=== PATIENT | male | born 1985 | race Caucasian/White ===

== ENCOUNTER 2021-05-11 23:46 | Inpatient (IN) ==
[2021-05-12] MEDS ORDERED: NS 0.9% 1000 ml BAG 1,000 ML IV ONE (00:59)
[2021-05-12] MEDS ORDERED: diPHENhydraMINE IV 50 MG/ML 1 ml VIAL (BENADRYL) SLOW PUSH ONE (01:04)
[2021-05-12] MEDS ORDERED: Metoclopramide 5 MG/ML VIAL (10 mg) IV SLOW PU ONE (01:04)
[2021-05-12] MEDS ORDERED: Pantoprazole VIAL 40 MG VIAL IV ONE (01:04)
[2021-05-12 01:40] LABS: ABS Basophils 0.1 10^3/ul (0-0.2); ABS Eosinophils 0.1 10^3/ul (0-0.6); ABS Lymphocytes 1.4 10^3/ul (1.0-4.8); ABS Monocytes 1.2 10^3/ul (0-0.8); ABS Neutrophils 8.9 10^3/ul (1.5-7.7); Eosinophil % 0.9 %; Hematocrit 47 % (42-52); Hemoglobin 16.4 g/dL (14.0-18.0); Lymphocyte % 11.8 %; Mean Corpuscular HGB Conc 35 g/dL (31-36); Mean Corpuscular Hemoglobin 34 pg (27-31); Mean Corpuscular Volume 97 fL (80-94); Mean Platelet Volume 7.9 fL (7.4-10.4); Nucleated Red Blood Cells % 0.2; Platelet Count 286 10^3/uL (150-450); Red Blood Count 4.86 10^6 /uL (4.18-5.48); Red Cell Distribution Width 15 % (10-15); White Blood Count 11.7 10^3/uL (3.5-10.8)
[2021-05-12 01:57] LABS: Albumin 4.2 g/dL (3.2-5.2); Albumin/Globulin Ratio 1.4 (1-3); C Reactive Protein 2.33 mg/L (<8.01); Calcium 9.3 mg/dL (8.6-10.3); EGFR African American 66.3 (>60); EGFR Non-African American 54.8 (>60); Magnesium 1.7 mg/dL (1.9-2.7); Potassium 2.8 mmol/L (3.5-5.0); Total Bilirubin 1.4 mg/dL (0.2-1.0); Total Protein 7.2 g/dL (6.4-8.9)
[2021-05-12] MEDS ORDERED: Potassium Chlor 20 meq TAB.ER PO ONE ×2 (02:15→05:59)
[2021-05-12] MEDS ORDERED: Magnesium Sulfate IV 1GM/100ML 1 GM/100 ML BAG IV ONE (02:15)
[2021-05-12] MEDS: KCL 10 MEQ/50 ML IVPREMIX 10 MEQ/50 ML BAG IV SCH ×2 (04:12→05:21)
[2021-05-12] MEDS: NS 0.9% 1000 ml BAG 1,000 ML IV SCH ×2 (05:07→06:04)
[2021-05-12] MEDS ORDERED: chlorproMAZINE 25 MG/ML 2 ML (50 MG) IV ONE (05:24)
[2021-05-12] MEDS ORDERED: NS 0.9% 1000 ml BAG 1,000 ML IV SCH (06:00)
[2021-05-12] MEDS ORDERED: Potassium Chloride LIQUID 20 MEQ/15 ML LIQUID PO ONE ×3 (06:10→12:00)
[2021-05-12] MEDS ORDERED: Magnesium Sulfate 2 gm BAG 2 GM/50 ML BAG IVPB ONE (07:36)
[2021-05-12 07:52] LABS: Myoglobin 260.2 ng/mL (17.4-105.7)
[2021-05-12] MEDS ORDERED: Ondansetron 4 mg VIAL 2 MG/ML 2 ml VIAL IV PRN (08:07)
[2021-05-12 08:47] LABS: Calcium 7.9 mg/dL (8.6-10.3); EGFR African American 74.5 (>60); EGFR Non-African American 61.6 (>60); Potassium 3.4 mmol/L (3.5-5.0)
[2021-05-12 08:49] LABS: Urine Appearance Clear; Urine Bilirubin Negative (Negative); Urine Blood 1+ (Negative); Urine Color Yellow; Urine Glucose Negative (Negative); Urine Ketones Negative (Negative); Urine Nitrite Negative (Negative); Urine Protein Negative (Negative); Urine Specific Gravity 1.011 (1.002-1.030); Urine Urobilinogen Negative (Negative)
[2021-05-12 08:52] LABS: Urine Bacteria Absent (Absent); Urine Red Blood Cell Absent (Absent); Urine White Blood Cell Trace(0-5/hpf) (Absent)
[2021-05-12] MEDS ORDERED: Lactated Ringers 1000 ml BAG 1,000 ML IV SCH (09:00)
[2021-05-12] MEDS ORDERED: Thiamine 100 MG/ML 2 ml VIAL 500 MG in NS 0.9% 250 ml 250 ML IV SCH (10:30)
[2021-05-12] MEDS ORDERED: Benzocaine/Menthol LOZ PO PRN (11:02)
[2021-05-12] MEDS: Thiamine 100 MG/ML 2 ml VIAL 500 MG in NS 0.9% 250 ml 250 ML IV SCH ×2 (12:36→21:13)
[2021-05-12] MEDS ORDERED: Gadoteridol (CONTRAST) 279.3 MG/ML 10 ML IV ONE ×2 (15:54→15:59)
[2021-05-12] MEDS ORDERED: Calcium Carb (TUMS) 500 mg CHEW TAB PO PRN (23:12)
[2021-05-13 04:46] LABS: ABS Basophils 0.1 10^3/ul (0-0.2); ABS Eosinophils 0.2 10^3/ul (0-0.6); ABS Lymphocytes 1.6 10^3/ul (1.0-4.8); ABS Monocytes 0.6 10^3/ul (0-0.8); ABS Neutrophils 4.9 10^3/ul (1.5-7.7); Eosinophil % 2.2 %; Hematocrit 40 % (42-52); Hemoglobin 13.4 g/dL (14.0-18.0); Lymphocyte % 22.1 %; Mean Corpuscular HGB Conc 34 g/dL (31-36); Mean Corpuscular Hemoglobin 34 pg (27-31); Mean Corpuscular Volume 99 fL (80-94); Platelet Count 230 10^3/uL (150-450); Red Blood Count 4.02 10^6 /uL (4.18-5.48); Red Cell Distribution Width 14 % (10-15); White Blood Count 7.5 10^3/uL (3.5-10.8)
[2021-05-13 05:04] LABS: Albumin 3.5 g/dL (3.2-5.2); Albumin/Globulin Ratio 1.6 (1-3); Calcium 7.9 mg/dL (8.6-10.3); EGFR African American 74.5 (>60); EGFR Non-African American 61.6 (>60); Globulin 2.2 g/dL (2-4); Potassium 3.3 mmol/L (3.5-5.0); Total Bilirubin 0.8 mg/dL (0.2-1.0); Total Protein 5.7 g/dL (6.4-8.9)
[2021-05-13] MEDS: Thiamine 100 MG/ML 2 ml VIAL 500 MG in NS 0.9% 250 ml 250 ML IV SCH ×2 (05:24→12:59)
[2021-05-13] MEDS ORDERED: cefTRIAXone 1 gm/50 mL NS BAG 1 GM/50 ML BAG IVPB SCH (06:30)
[2021-05-13 09:50] LABS: Activated Partial Thrombo Time 27.9 seconds (26.0-38.0); INR 0.94 (0.86-1.15)
[2021-05-13 12:06] LABS: Body Fluid Source Cerebral Spinal
[2021-05-13 12:22] LABS: CSF Glucose 55 mg/dL (40-70)
[2021-05-13 12:49] LABS: Body Fluid Appearance Clear; Body Fluid Color Colorless; Body Fluid WBC 1 /mcL; CSF Tube # 4
[2021-05-13 12:54] LABS: Body Fluid Mono 60 %; Body Fluid Total Cells Counted 10
[2021-05-13 13:27] VITALS: BP 120/63
[2021-05-14 09:10] LABS: Anaplasma phagocytophilum Negative (Negative); B. miyamotoi PCR, B Negative (Negative); Babesia divergens/MO-1 Negative (Negative); Babesia ducani Negative (Negative); Ehrlichia chaffeensis Negative (Negative); Ehrlichia ewingii/canis Negative (Negative); Ehrlichia muris eauclairensis Negative (Negative)
[2021-05-14 16:06] LABS: CSF VDRL Negative (Negative)
[2021-05-14 16:13] LABS: HSV 1 PCR, CSF Negative (Negative); HSV 2 PCR, CSF Negative (Negative)
[2021-05-17 00:13] LABS: CSF Angiotension Conv Enz 1.5 U/L (0.0-2.5)
[2021-05-18 13:50] LABS: CSF Oligoclonal Bands 1 bands; Oligoclonal Proteins Interpret 0 bands (<2); Serum Oligoclonal Bands 1 bands
[2021-05-19 15:55] LABS: B. garinii/B. afzellii PCR Negative (Negative); Lyme Disease Source CSF
[2021-05-20 16:11] LABS: CSF West Nile Virus IgG Ab Negative (Negative); CSF West Nile Virus IgM Ab Negative (Negative)
[2021-05-22 00:05] LABS: Lyme CNS IgG Ab Index Interp Negative; Lyme CNS IgG Ab Index Value 0.8 (0.6 - 1.2)
== END 2021-05-13 14:55 | disposition home or self-care (01) | DRG 144 ==
LOC: ED 23:46 → MED 05-12 09:03
PROVIDERS: ADMIT Internal Medicine; ATTEND Internal Medicine

== ENCOUNTER 2021-05-27 13:19 | Inpatient (IN) ==
[2021-05-27 15:12] LABS: ABS Basophils 0.1 10^3/ul (0-0.2); ABS Eosinophils 0.1 10^3/ul (0-0.6); ABS Lymphocytes 1.2 10^3/ul (1.0-4.8); ABS Monocytes 0.5 10^3/ul (0-0.8); Eosinophil % 2.8 %; Hematocrit 48 % (42-52); Hemoglobin 16.5 g/dL (14.0-18.0); Lymphocyte % 23.5 %; Mean Corpuscular HGB Conc 35 g/dL (31-36); Mean Corpuscular Hemoglobin 34 pg (27-31); Mean Corpuscular Volume 97 fL (80-94); Mean Platelet Volume 7.6 fL (7.4-10.4); Nucleated Red Blood Cells % 0.1; Platelet Count 263 10^3/uL (150-450); Red Blood Count 4.92 10^6 /uL (4.18-5.48); Red Cell Distribution Width 14 % (10-15); White Blood Count 4.9 10^3/uL (3.5-10.8)
[2021-05-27 15:31] LABS: Albumin 4.4 g/dL (3.2-5.2); Albumin/Globulin Ratio 1.4 (1-3); Calcium 9.1 mg/dL (8.6-10.3); EGFR African American 64.2 (>60); EGFR Non-African American 53.1 (>60); Globulin 3.1 g/dL (2-4); Magnesium 1.8 mg/dL (1.9-2.7); Potassium 3.8 mmol/L (3.5-5.0); Total Protein 7.5 g/dL (6.4-8.9)
[2021-05-27] MEDS ORDERED: NS 0.9% 500 ml BAG 500 ML IV SCH (18:00)
[2021-05-27] MEDS ORDERED: NS 0.9% 1000 ml BAG 1,000 ML IV ONE (18:19)
[2021-05-27 20:04] LABS: Phosphorus 2.8 mg/dL (2.5-5.0)
[2021-05-27] MEDS ORDERED: Ondansetron 4 mg VIAL 2 MG/ML 2 ml VIAL IV ONE (20:35)
[2021-05-27 20:59] LABS: Urine Appearance Clear; Urine Bilirubin Negative (Negative); Urine Blood Negative (Negative); Urine Color Yellow; Urine Glucose Negative (Negative); Urine Ketones Negative (Negative); Urine Nitrite Negative (Negative); Urine Protein 1+(30 mg/dL) (Negative); Urine Specific Gravity 1.016 (1.002-1.030); Urine Urobilinogen Negative (Negative)
[2021-05-27 21:01] LABS: Urine Bacteria Absent (Absent); Urine Red Blood Cell Trace(0-2/hpf) (Absent); Urine White Blood Cell Absent (Absent)
[2021-05-27] MEDS ORDERED: Al Hydrox/Mg Hydrox/Simet LIQ 30 ML UDC PO PRN (21:36)
[2021-05-28 05:24] LABS: Hepatitis C Antibody Negative (Negative)
[2021-05-28] MEDS ORDERED: Ondansetron 4 mg VIAL 2 MG/ML 2 ml VIAL IV PRN (06:30)
[2021-05-28 07:45] LABS: ABS Basophils 0.1 10^3/ul (0-0.2); ABS Eosinophils 0.2 10^3/ul (0-0.6); ABS Lymphocytes 1.4 10^3/ul (1.0-4.8); ABS Monocytes 0.8 10^3/ul (0-0.8); ABS Neutrophils 7.3 10^3/ul (1.5-7.7); Eosinophil % 2.3 %; Hematocrit 46 % (42-52); Lymphocyte % 14.6 %; Mean Corpuscular HGB Conc 35 g/dL (31-36); Mean Corpuscular Hemoglobin 34 pg (27-31); Mean Corpuscular Volume 97 fL (80-94); Nucleated Red Blood Cells % 0.1; Platelet Count 258 10^3/uL (150-450); Red Blood Count 4.71 10^6 /uL (4.18-5.48); Red Cell Distribution Width 14 % (10-15); White Blood Count 9.8 10^3/uL (3.5-10.8)
[2021-05-28 07:56] LABS: Calcium 8.8 mg/dL (8.6-10.3); EGFR African American 67.3 (>60); EGFR Non-African American 55.6 (>60); Potassium 3.5 mmol/L (3.5-5.0)
[2021-05-29 08:00] LABS: ABS Basophils 0.1 10^3/ul (0-0.2); ABS Eosinophils 0.3 10^3/ul (0-0.6); ABS Lymphocytes 1.5 10^3/ul (1.0-4.8); ABS Monocytes 0.7 10^3/ul (0-0.8); ABS Neutrophils 4.9 10^3/ul (1.5-7.7); Eosinophil % 4.1 %; Hematocrit 44 % (42-52); Hemoglobin 15.4 g/dL (14.0-18.0); Lymphocyte % 19.9 %; Mean Corpuscular HGB Conc 35 g/dL (31-36); Mean Corpuscular Hemoglobin 34 pg (27-31); Mean Corpuscular Volume 98 fL (80-94); Mean Platelet Volume 8.2 fL (7.4-10.4); Platelet Count 220 10^3/uL (150-450); Red Cell Distribution Width 14 % (10-15); White Blood Count 7.4 10^3/uL (3.5-10.8)
[2021-05-29 08:14] LABS: Albumin 4.2 g/dL (3.2-5.2); Albumin/Globulin Ratio 1.4 (1-3); Calcium 8.8 mg/dL (8.6-10.3); EGFR African American 67.9 (>60); EGFR Non-African American 56.1 (>60); Globulin 2.9 g/dL (2-4); Magnesium 1.9 mg/dL (1.9-2.7); Phosphorus 2.6 mg/dL (2.5-5.0); Potassium 3.9 mmol/L (3.5-5.0); Total Bilirubin 1.1 mg/dL (0.2-1.0); Total Protein 7.1 g/dL (6.4-8.9)
[2021-05-29] MEDS ORDERED: NS 0.9% 1000 ml BAG 1,000 ML IV ONE ×2 (09:51)
[2021-05-29 11:19] VITALS: BP 160/100
== END 2021-05-29 13:10 | disposition home or self-care (01) | DRG 248 ==
LOC: MEDTELE 13:19 → ED 13:19 → SUATTDRO 22:16
PROVIDERS: ADMIT Internal Medicine; ATTEND Internal Medicine